=== PATIENT | female | born 1960 | race Two or more races ===

== ENCOUNTER 2017-03-12 14:29 | Inpatient (IN) | payer OTHER ==
[2017-03-12 15:08] VITALS: BMI 22.7
--- NOTE | 2017-03-12 15:29 | HP ---
CIWA Score - CIWA Score Nausea/Vomitin Muscle Tremors: 3 Anxiety: 3 Agitation: 3 Paroxysmal Sweats: 2 Orientation: 0-Oriented Tacttile Disturbances: 2-Mild Itch/Numbness/Burn Auditory Disturbances: 2-Mild Harshness/Frighten Visual Disturbances: 2-Mild Sensitivity Headache: 2-Mild CIWA-Ar Total Score: 22 Admission ROS BHS - HPI Chief Complaint: I AM HERE TO STOP DRINKING ALCOHOL Allergies/Adverse Reactions: Allergies Allergy/AdvReac Type Severity Reaction Status Date / Time almond oil Allergy Severe Itching Verified 03/12/17 15:20 red dye Allergy Severe Rash Verified 03/12/17 15:20 wheat Allergy Severe Verified 03/12/17 15:20 Iodinated Contrast Media - Allergy Verified 03/12/17 15:22 Oral and milk Allergy Verified 03/12/17 15:22 shrimp Allergy Verified 03/12/17 15:22 History of Present Illness: THIS 56 YEARS OLD FEMALE WITH ALCOHOL DEPENDENCE WITH WITHDRAWAL,NEVER BEEN IN DETOX BEFORE HYPERTENSION HYPERLIPEDEMIA SYNCOPE Exam Limitations: No Limitations - Ebola screening Have you traveled outside of the country in the last 21 days: No Have you had contact with anyone from an Ebola affected area: No Have you been sick,other than usual withdrawal symptoms: No - Review of Systems Constitutional: Loss of Appetite, Malaise, Night Sweats, Changes in sleep, Weakness, Unintentional Wgt. Loss EENT: reports: Tearing, Nose Congestion Respiratory: reports: No Symptoms reported Cardiac: reports: Palpitations GI: reports: Diarrhea, Nausea, Vomiting, Abdominal cramping : reports: No Symptoms Reported Musculoskeletal: reports: Back Pain, Muscle Pain Integumentary: reports: Dryness Neuro: reports: Headache, Tremors Endocrine: reports: No Symptoms Reported Hematology: reports: No Symptoms Reported Psychiatric: reports: No Sypmtoms Reported, Judgement Intact, Mood/Affect Appropiate, Orientated x3 Patient History - Patient Medical History Hx Anemia: No Hx Asthma: No Hx Chronic Obstructive Pulmonary Disease (COPD): No Hx Cancer: No Hx Cardiac Disorders: No Hx Congestive Heart Failure: No Hx Hypertension: Yes (ON MED) Hx Hypercholesterolemia: Yes (ON MED) Hx Pacemaker: No HX Cerebrovascular Accident: No Hx Seizures: No Hx Dementia: No Hx Diabetes: No Hx Gastrointestinal Disorders: No Hx Liver Disease: No Hx Genitourinary Disorders: No Hx Sexually Transmitted Disorders: No Hx Renal Disease (ESRD): No Hx Thyroid Disease: No Hx Human Immunodeficiency Virus (HIV): (NEVER BEEN TESTED BEFORE) Hx Hepatitis C: No Hx Depression: No Hx Suicide Attempt: No Hx Bipolar Disorder: No Hx Schizophrenia: No Other Medical History: NO SUICIDAL,NO HOMICIDAL - Patient Surgical History Hx Hysterectomy: Yes (FOR ENDOMETRIOSIS 2006) - PPD History Previous Implant?: Yes Documented Results: Negative w/o proof PPD to be Administered?: Yes - Reproductive History Patient : No - Smoking Cessation Smoking history: Never smoked - Substance & Tx. History Hx Alcohol Use: Yes Hx Substance Use: No Substance Use Type: Alcohol Hx Substance Use Treatment: No - Substances Abused Alcohol Route: Oral Frequency: Daily Amount used: 1/2 liter yuniel Age of first use: 30 Date of Last Use: 03/12/17 Family Disease History - Family Disease History Family Disease History: Other: Father (ALCOHOL,), Brother (ALCOHOL) Admission Physical Exam [facility] - Vital Signs Vital Signs: Vital Signs - 24 hr 03/12/17 15:04 Temperature 97.8 F Pulse Rate 113 H Respiratory 18 Rate Blood Pressure 140/87 - Physical General Appearance: Yes: Moderate Distress, Tremorous, Irritable, Sweating, Anxious HEENTM: Yes: Normal ENT Inspection, STEF, Pharynx Normal Respiratory: Yes: Within Normal Limits, Lungs Clear, Normal Breath Sounds Neck: Yes: Within Normal Limits, Supple, Trachea in good position Breast: Yes: Within Normal Limits Cardiology: Yes: Within Normal Limits, Regular Rhythm, Regular Rate, S1, S2 Abdominal: Yes: Within Normal Limits, Normal Bowel Sounds, Non Tender, Flat, Soft Genitourinary: Yes: Within Normal Limits Back: Yes: Normal Inspection, Muscle Spasm Musculoskeletal: Yes: Back pain, Muscle Pain Extremities: Yes: Normal Inspection, Normal Range of Motion, Tremors Neurological: Yes: energy engineer II-XII NML intact, Fully Oriented, Alert, Motor Strength 5/5 Integumentary: Yes: Dry Lymphatic: Yes: Within Normal Limits - Diagnostic (1) Alcohol dependence with uncomplicated withdrawal Current Visit: Yes Status: Acute (2) Syncope Current Visit: Yes Status: Acute (3) Hypertension Current Visit: Yes Status: Acute (4) S/P hysterectomy Current Visit: Yes Status: Acute Cleared for Admission [facility] - Detox or Rehab [facility] Level of Care: Medically Managed Detox Regimen/Protocol: Librium [facility] Breath Alcohol Content Breath Alcohol Content: 0.023 Urine Pregancy Test - Result Urine Test Results: Negative- NO Line Present Urine Drug Screen - Results Drug Screen Negative: Yes
[2017-03-12] MEDS ORDERED: MAG HYDROX/AL HYDROX/SIMETH 30 ML UNIT-DOSE CUP PO PRN (15:39)
[2017-03-12] MEDS ORDERED: guaiFENesin/D-METHORPHAN HB 10 ML UNIT-DOSE CUPS PO PRN (15:39)
[2017-03-12] MEDS ORDERED: P-EPHED 60MG/TRIPROLIDI 2.5MG TABLET PO PRN (15:39)
[2017-03-12] MEDS ORDERED: hydrOXYzine PAMOATE 50 MG CAPSULE (FP) PO PRN (15:39)
[2017-03-12] MEDS ORDERED: ACETAMINOPHEN 325 MG TABLET (FP) PO PRN (15:39)
[2017-03-12] MEDS ORDERED: MENTHOL/PHENOL 1 EACH UD MM PRN (15:39)
[2017-03-12] MEDS ORDERED: MAGNESIUM CITRATE 300 ML BOTTLE PO PRN (15:39)
[2017-03-12] MEDS ORDERED: LOPERAMIDE HCL 2 MG CAPSULE PO PRN (15:39)
[2017-03-12] MEDS ORDERED: IBUPROFEN 400 MG TABLET (FP) PO PRN (15:39)
[2017-03-12] MEDS ORDERED: chlordiazePOXIDE HCL 25 MG CAPSULE PO PRN (15:42)
[2017-03-12] MEDS ORDERED: chlordiazePOXIDE HCL 25 MG CAPSULE PO ONE (15:54)
[2017-03-12] MEDS: chlordiazePOXIDE HCL 25 MG CAPSULE PO SCH ×2 (17:28→22:13)
[2017-03-12] MEDS: THIAMINE HCL 100 MG TABLET (FP) PO SCH (22:13)
[2017-03-12] MEDS: diphenhydrAMINE HCL 50 MG CAPSULE PO PRN (22:13)
[2017-03-12] MEDS: ATORVASTATIN CA 20 MG TABLET (FP) PO SCH (22:13)
[2017-03-12 23:12] LABS: URINE APPEARANCE CLEAR; URINE BILIRUBIN NEGATIVE (NEGATIVE); URINE BLOOD NEGATIVE (NEGATIVE); URINE COLOR LTYELLOW; URINE GLUCOSE (UA) NEGATIVE (NEGATIVE); URINE KETONE NEGATIVE (NEGATIVE); URINE LEUK ESTERASE NEGATIVE (NEGATIVE); URINE NITRITE NEGATIVE (NEGATIVE); URINE UROBILINOGEN NEGATIVE E.U./dl (0.2-1.0)
[2017-03-12 23:15] LABS: URINE PROTEIN 2+ (NEGATIVE)
[2017-03-12 23:16] LABS: URINE MUCUS RARE; URINE RBC <1 /hpf (0-3); URINE WBC 3 /hpf (3-5)
[2017-03-13] MEDS: chlordiazePOXIDE HCL 25 MG CAPSULE PO SCH ×5 (06:13→22:41)
--- NOTE | 2017-03-13 09:04 | PN ---
S CIWA - CIWA Score Nausea/Vomitin Muscle Tremors: 3 Anxiety: 3 Agitation: 2 Paroxysmal Sweats: 3 Orientation: 0-Oriented Tacttile Disturbances: 2-Mild Itch/Numbness/Burn Auditory Disturbances: 0-None Visual Disturbances: 0-None Headache: 1-Very Mild CIWA-Ar Total Score: 17 S Progress Note (SOAP) Subjective: interrupted sleep, sweats, shakes , diarrhea, headache Objective: 03/13/17 09:01 Vital Signs Temperature 97.5 F L 03/13/17 06:58 Pulse Rate 73 03/13/17 06:58 Respiratory Rate 18 03/13/17 06:58 Blood Pressure 126/85 03/13/17 06:58 O2 Sat by Pulse Oximetry (%) Laboratory Tests 03/12/17 09:17 Urine Color Ltyellow Urine Appearance Clear Urine pH 7.0 Ur Specific [place] 1.012 Urine Protein 2+ H Urine Glucose (UA) Negative Urine Ketones Negative Urine Blood Negative Urine Nitrite Negative Urine Bilirubin Negative Urine Urobilinogen Negative Ur Leukocyte Esterase Negative Urine RBC <1 Urine WBC 3 Ur Epithelial Cells Rare Urine Mucus Rare pending labs pt aox3 in nad ambulating Assessment: 03/13/17 09:02 withdrawal sx;s allergies, sinus issues Plan: cont detox increase fluids f/up pending labs mucinex bid loratidine 10mg /d flonase bid
[2017-03-13 10:48] LABS: MCH 23.6 pg (25.7-33.7); MCHC 31.2 g/dl (32.0-36.0); MEAN CELL VOLUME 75.5 fl (80-96); MEAN PLT VOLUME 8.8 fl (7.5-11.1); PLATELET COUNT 256 K/MM3 (134-434); RDW 14.3 % (11.6-15.6)
[2017-03-13] MEDS: guaiFENesin 600 MG TABLET.ER (FP) PO SCH ×2 (10:49→22:40)
[2017-03-13] MEDS: FLUTICASONE PROP 0.05% 16 GM NASAL SPRAY NS SCH ×2 (10:49→22:41)
[2017-03-13] MEDS: PRENATAL VITAMINS W/ FOLIC ACID TABLET (FP) PO SCH (10:50)
[2017-03-13] MEDS: ASPIRIN 81 MG CHEWABLE TABLETS PO SCH (10:50)
[2017-03-13] MEDS: LORATADINE 10 MG TABLET PO SCH (10:50)
[2017-03-13] MEDS: amLODIPine BESYLATE 10 MG TABLET (FP) PO SCH (10:50)
[2017-03-13 11:07] LABS: ALBUMIN 3.9 g/dl (3.4-5.0); ALK PHOS 108 U/L (45-117); ANION GAP 8 (8-16); BILIRUBIN,TOTAL 0.6 mg/dL (0.2-1.0); CALCIUM 9.3 mg/dL (8.5-10.1); CO2 28 mmol/L (21-32); CREATININE 0.6 mg/dL (0.55-1.02); GLUCOSE,RANDOM 138 mg/dL (74-106); SGOT/AST 32 U/L (15-37); SGPT/ALT 35 U/L (12-78); TOT PROT 7.6 g/dl (6.4-8.2)
--- NOTE | 2017-03-13 12:33 | EKG ---
Test Reason : Blood Pressure : / mmHG Vent. Rate : 102 BPM Atrial Rate : 102 BPM P-R Int : 158 ms QRS Dur : 070 ms QT Int : 318 ms P-R-T Axes : 052 011 -14 degrees QTc Int : 414 ms SINUS TACHYCARDIA POSSIBLE LEFT ATRIAL ENLARGEMENT NONSPECIFIC T WAVE ABNORMALITY ABNORMAL ECG NO PREVIOUS ECGS AVAILABLE Confirmed by YSABEL SWARTZ, ABY ([id number]) on 03/13/2017 12:32:58 PM Referred By: Confirmed By:ABY GRADY MD
[2017-03-13] MEDS: ATORVASTATIN CA 20 MG TABLET (FP) PO SCH (22:40)
[2017-03-13] MEDS: THIAMINE HCL 100 MG TABLET (FP) PO SCH (22:42)
[2017-03-14] MEDS: chlordiazePOXIDE HCL 25 MG CAPSULE PO SCH ×2 (05:50→11:17)
[2017-03-14] MEDS: PRENATAL VITAMINS W/ FOLIC ACID TABLET (FP) PO SCH (11:15)
[2017-03-14] MEDS: ASPIRIN 81 MG CHEWABLE TABLETS PO SCH (11:16)
[2017-03-14] MEDS: guaiFENesin 600 MG TABLET.ER (FP) PO SCH ×2 (11:16→22:46)
[2017-03-14] MEDS: LORATADINE 10 MG TABLET PO SCH (11:16)
[2017-03-14] MEDS: amLODIPine BESYLATE 10 MG TABLET (FP) PO SCH (11:16)
[2017-03-14] MEDS: FLUTICASONE PROP 0.05% 16 GM NASAL SPRAY NS SCH ×2 (11:17→22:44)
[2017-03-14] MEDS: IBUPROFEN 600 MG TABLET (FP) PO PRN ×2 (12:31→22:50)
--- NOTE | 2017-03-14 13:42 | PN ---
[facility] CIWA - CIWA Score Nausea/Vomitin-No Nausea/No Vomiting Muscle Tremors: 4-Moderate,w/Arms Extend Anxiety: 3 Agitation: 1-Slight > Activity Paroxysmal Sweats: 3 Orientation: 0-Oriented Tacttile Disturbances: 0-None Auditory Disturbances: 0-None Visual Disturbances: 3-Moderate Sensitivity Headache: 3-Moderate CIWA-Ar Total Score: 17 BHS Progress Note (SOAP) Subjective: Tremors, Sweating, Diarrhea, Interrupted sleep, H/A, Lower Back Pain. Objective: PT. A & O X 3. 03/14/17 13:40 Vital Signs Temperature 97.7 F 03/14/17 12:00 Pulse Rate 99 H 03/14/17 12:00 Respiratory Rate 20 03/14/17 12:00 Blood Pressure 125/90 03/14/17 12:00 O2 Sat by Pulse Oximetry (%) Laboratory Last Values WBC 5.0 K/mm3 (4.0-10.0) 03/13/17 07:00 RBC 5.17 M/mm3 (3.60-5.2) 03/13/17 07:00 Hgb 12.2 GM/dL (10.7-15.3) 03/13/17 07:00 Hct 39.0 % (32.4-45.2) 03/13/17 07:00 MCV 75.5 fl (80-96) L 03/13/17 07:00 MCHC 31.2 g/dl (32.0-36.0) L 03/13/17 07:00 RDW 14.3 % (11.6-15.6) 03/13/17 07:00 Plt Count 256 K/MM3 (134-434) 03/13/17 07:00 MPV 8.8 fl (7.5-11.1) 03/13/17 07:00 Sodium 137 mmol/L (136-145) 03/13/17 07:00 Potassium 4.2 mmol/L (3.5-5.1) 03/13/17 07:00 Chloride 101 mmol/L (98-107) 03/13/17 07:00 Carbon Dioxide 28 mmol/L (21-32) 03/13/17 07:00 Anion Gap 8 (8-16) 03/13/17 07:00 BUN 12 mg/dL (7-18) 03/13/17 07:00 Creatinine 0.6 mg/dL (0.55-1.02) 03/13/17 07:00 Creat Clearance w eGFR > 60 (>60) 03/13/17 07:00 Random Glucose 138 mg/dL (74-106) H 03/13/17 07:00 Calcium 9.3 mg/dL (8.5-10.1) 03/13/17 07:00 Total Bilirubin 0.6 mg/dL (0.2-1.0) 03/13/17 07:00 AST 32 U/L (15-37) 03/13/17 07:00 ALT 35 U/L (12-78) 03/13/17 07:00 Alkaline Phosphatase 108 U/L (45-117) 03/13/17 07:00 Total Protein 7.6 g/dl (6.4-8.2) 03/13/17 07:00 Albumin 3.9 g/dl (3.4-5.0) 03/13/17 07:00 Urine Color Ltyellow 03/12/17 09:17 Urine Appearance Clear 03/12/17 09:17 Urine pH 7.0 (5.0-8.0) 03/12/17 09:17 Ur Specific [place] 1.012 (1.001-1.035) 03/12/17 09:17 Urine Protein 2+ (NEGATIVE) H 03/12/17 09:17 Urine Glucose (UA) Negative (NEGATIVE) 03/12/17 09:17 Urine Ketones Negative (NEGATIVE) 03/12/17 09:17 Urine Blood Negative (NEGATIVE) 03/12/17 09:17 Urine Nitrite Negative (NEGATIVE) 03/12/17 09:17 Urine Bilirubin Negative (NEGATIVE) 03/12/17 09:17 Urine Urobilinogen Negative E.U./dl (0.2-1.0) 03/12/17 09:17 Ur Leukocyte Esterase Negative (NEGATIVE) 03/12/17 09:17 Urine RBC <1 /hpf (0-3) 03/12/17 09:17 Urine WBC 3 /hpf (3-5) 03/12/17 09:17 Ur Epithelial Cells Rare /hpf (FEW) 03/12/17 09:17 Urine Mucus Rare 03/12/17 09:17 RPR Titer Nonreactive (NONREACTIVE) 03/13/17 07:00 LABS NOTED. Assessment: 03/14/17 13:41 WITHDRAWAL SYMPTOMS. Plan: CONTINUE DETOX. PRN IMMODIUM FOR DIARRHEA. ADVISED PATIENT TO FOLLOW-UP WITH [facility] / REHAB MEDICAL PROVIDER AFTER DISCHARGE FROM DETOX FOR GENERAL MEDICAL ASSESSMENT AND FOR ABNORMAL ADMISSION LAB VALUES.
[2017-03-14] MEDS: chlordiazePOXIDE 5 MG CAPSULE PO SCH ×2 (17:13→22:45)
[2017-03-14] MEDS: ATORVASTATIN CA 20 MG TABLET (FP) PO SCH (22:45)
[2017-03-14] MEDS: THIAMINE HCL 100 MG TABLET (FP) PO SCH (22:45)
[2017-03-14] MEDS: MAGNESIUM HYDROX 2400MG/30ML ORAL SUSPENSION 30 ML CUP PO PRN (22:48)
[2017-03-15] MEDS: diphenhydrAMINE HCL 50 MG CAPSULE PO PRN ×2 (01:16→22:47)
[2017-03-15] MEDS: chlordiazePOXIDE 5 MG CAPSULE PO SCH ×2 (06:17→10:43)
[2017-03-15] MEDS: PRENATAL VITAMINS W/ FOLIC ACID TABLET (FP) PO SCH (10:44)
[2017-03-15] MEDS: FLUTICASONE PROP 0.05% 16 GM NASAL SPRAY NS SCH ×2 (10:44→22:43)
[2017-03-15] MEDS: amLODIPine BESYLATE 10 MG TABLET (FP) PO SCH (10:44)
[2017-03-15] MEDS: LORATADINE 10 MG TABLET PO SCH (10:44)
[2017-03-15] MEDS: ASPIRIN 81 MG CHEWABLE TABLETS PO SCH (10:44)
[2017-03-15] MEDS: guaiFENesin 600 MG TABLET.ER (FP) PO SCH ×2 (10:44→22:43)
[2017-03-15] MEDS: MAGNESIUM HYDROX 2400MG/30ML ORAL SUSPENSION 30 ML CUP PO PRN (10:47)
[2017-03-15] MEDS: chlordiazePOXIDE HCL 10 MG CAPSULE PO SCH ×2 (17:44→22:43)
--- NOTE | 2017-03-15 18:25 | PN ---
S Progress Note (SOAP) Subjective: Nausea, Tremors, Lower Back Ache, Interrupted sleep, Sweating. Objective: PT. A & O X 3, OBSERVED AMBULATING ON UNIT. 03/15/17 18:23 Vital Signs Temperature 98.1 F 03/15/17 14:37 Pulse Rate 93 H 03/15/17 14:37 Respiratory Rate 18 03/15/17 14:37 Blood Pressure 117/85 03/15/17 14:37 O2 Sat by Pulse Oximetry (%) Laboratory Last Values WBC 5.0 K/mm3 (4.0-10.0) 03/13/17 07:00 RBC 5.17 M/mm3 (3.60-5.2) 03/13/17 07:00 Hgb 12.2 GM/dL (10.7-15.3) 03/13/17 07:00 Hct 39.0 % (32.4-45.2) 03/13/17 07:00 MCV 75.5 fl (80-96) L 03/13/17 07:00 MCHC 31.2 g/dl (32.0-36.0) L 03/13/17 07:00 RDW 14.3 % (11.6-15.6) 03/13/17 07:00 Plt Count 256 K/MM3 (134-434) 03/13/17 07:00 MPV 8.8 fl (7.5-11.1) 03/13/17 07:00 Sodium 137 mmol/L (136-145) 03/13/17 07:00 Potassium 4.2 mmol/L (3.5-5.1) 03/13/17 07:00 Chloride 101 mmol/L (98-107) 03/13/17 07:00 Carbon Dioxide 28 mmol/L (21-32) 03/13/17 07:00 Anion Gap 8 (8-16) 03/13/17 07:00 BUN 12 mg/dL (7-18) 03/13/17 07:00 Creatinine 0.6 mg/dL (0.55-1.02) 03/13/17 07:00 Creat Clearance w eGFR > 60 (>60) 03/13/17 07:00 Random Glucose 138 mg/dL (74-106) H 03/13/17 07:00 Calcium 9.3 mg/dL (8.5-10.1) 03/13/17 07:00 Total Bilirubin 0.6 mg/dL (0.2-1.0) 03/13/17 07:00 AST 32 U/L (15-37) 03/13/17 07:00 ALT 35 U/L (12-78) 03/13/17 07:00 Alkaline Phosphatase 108 U/L (45-117) 03/13/17 07:00 Total Protein 7.6 g/dl (6.4-8.2) 03/13/17 07:00 Albumin 3.9 g/dl (3.4-5.0) 03/13/17 07:00 Urine Color Ltyellow 03/12/17 09:17 Urine Appearance Clear 03/12/17 09:17 Urine pH 7.0 (5.0-8.0) 03/12/17 09:17 Ur Specific [place] 1.012 (1.001-1.035) 03/12/17 09:17 Urine Protein 2+ (NEGATIVE) H 03/12/17 09:17 Urine Glucose (UA) Negative (NEGATIVE) 03/12/17 09:17 Urine Ketones Negative (NEGATIVE) 03/12/17 09:17 Urine Blood Negative (NEGATIVE) 03/12/17 09:17 Urine Nitrite Negative (NEGATIVE) 03/12/17 09:17 Urine Bilirubin Negative (NEGATIVE) 03/12/17 09:17 Urine Urobilinogen Negative E.U./dl (0.2-1.0) 03/12/17 09:17 Ur Leukocyte Esterase Negative (NEGATIVE) 03/12/17 09:17 Urine RBC <1 /hpf (0-3) 03/12/17 09:17 Urine WBC 3 /hpf (3-5) 03/12/17 09:17 Ur Epithelial Cells Rare /hpf (FEW) 03/12/17 09:17 Urine Mucus Rare 03/12/17 09:17 RPR Titer Nonreactive (NONREACTIVE) 03/13/17 07:00 LABS NOTED. Assessment: 03/15/17 18:24 WITHDRAWAL SYMPTOMS. Plan: CONTINUE DETOX. ADVISED PATIENT TO FOLLOW-UP WITH [facility] / REHAB MEDICAL PROVIDER AFTER DISCHARGE FROM DETOX FOR GENERAL MEDICAL ASSESSMENT AND FOR ABNORMAL ADMISSION LAB VALUES.
[2017-03-15] MEDS: THIAMINE HCL 100 MG TABLET (FP) PO SCH (22:43)
[2017-03-15] MEDS: ATORVASTATIN CA 20 MG TABLET (FP) PO SCH (22:43)
[2017-03-15] MEDS: IBUPROFEN 600 MG TABLET (FP) PO PRN (22:44)
[2017-03-16] MEDS: chlordiazePOXIDE HCL 10 MG CAPSULE PO SCH ×2 (06:09→10:23)
--- NOTE | 2017-03-16 09:58 | DS ---
[facility] Detox Discharge Summary Admission Date: 03/12/17 Discharge Date: 03/16/17 - History Present History: Alcohol Dependence Pertinent Past History: HTN S/P Hysterectomy - Physical Exam Results Vital Signs: Vital Signs Temperature 96.6 F L 03/16/17 06:00 Pulse Rate 101 H 03/16/17 06:00 Respiratory Rate 18 03/16/17 06:00 Blood Pressure 111/85 03/16/17 06:00 O2 Sat by Pulse Oximetry (%) Pertinent Admission Physical Exam Findings: Withdrawal sx. Laboratory Last Values WBC 5.0 K/mm3 (4.0-10.0) 03/13/17 07:00 RBC 5.17 M/mm3 (3.60-5.2) 03/13/17 07:00 Hgb 12.2 GM/dL (10.7-15.3) 03/13/17 07:00 Hct 39.0 % (32.4-45.2) 03/13/17 07:00 MCV 75.5 fl (80-96) L 03/13/17 07:00 MCHC 31.2 g/dl (32.0-36.0) L 03/13/17 07:00 RDW 14.3 % (11.6-15.6) 03/13/17 07:00 Plt Count 256 K/MM3 (134-434) 03/13/17 07:00 MPV 8.8 fl (7.5-11.1) 03/13/17 07:00 Sodium 137 mmol/L (136-145) 03/13/17 07:00 Potassium 4.2 mmol/L (3.5-5.1) 03/13/17 07:00 Chloride 101 mmol/L (98-107) 03/13/17 07:00 Carbon Dioxide 28 mmol/L (21-32) 03/13/17 07:00 Anion Gap 8 (8-16) 03/13/17 07:00 BUN 12 mg/dL (7-18) 03/13/17 07:00 Creatinine 0.6 mg/dL (0.55-1.02) 03/13/17 07:00 Creat Clearance w eGFR > 60 (>60) 03/13/17 07:00 Random Glucose 138 mg/dL (74-106) H 03/13/17 07:00 Calcium 9.3 mg/dL (8.5-10.1) 03/13/17 07:00 Total Bilirubin 0.6 mg/dL (0.2-1.0) 03/13/17 07:00 AST 32 U/L (15-37) 03/13/17 07:00 ALT 35 U/L (12-78) 03/13/17 07:00 Alkaline Phosphatase 108 U/L (45-117) 03/13/17 07:00 Total Protein 7.6 g/dl (6.4-8.2) 03/13/17 07:00 Albumin 3.9 g/dl (3.4-5.0) 03/13/17 07:00 Urine Color Ltyellow 03/12/17 09:17 Urine Appearance Clear 03/12/17 09:17 Urine pH 7.0 (5.0-8.0) 03/12/17 09:17 Ur Specific [place] 1.012 (1.001-1.035) 03/12/17 09:17 Urine Protein 2+ (NEGATIVE) H 03/12/17 09:17 Urine Glucose (UA) Negative (NEGATIVE) 03/12/17 09:17 Urine Ketones Negative (NEGATIVE) 03/12/17 09:17 Urine Blood Negative (NEGATIVE) 03/12/17 09:17 Urine Nitrite Negative (NEGATIVE) 03/12/17 09:17 Urine Bilirubin Negative (NEGATIVE) 03/12/17 09:17 Urine Urobilinogen Negative E.U./dl (0.2-1.0) 03/12/17 09:17 Ur Leukocyte Esterase Negative (NEGATIVE) 03/12/17 09:17 Urine RBC <1 /hpf (0-3) 03/12/17 09:17 Urine WBC 3 /hpf (3-5) 03/12/17 09:17 Ur Epithelial Cells Rare /hpf (FEW) 03/12/17 09:17 Urine Mucus Rare 03/12/17 09:17 RPR Titer Nonreactive (NONREACTIVE) 03/13/17 07:00 labs noted - Treatment Hospital Course: Detox Protocol Followed, Detoxed Safely, Responded well, Discharged Condition Good, Rehab Referral Accepted - Medication Discharge Medications: Ambulatory Orders Amlodipine Besylate [Norvasc -] 10 mg PO DAILY 03/12/17 Aspirin [ASA -] 81 mg PO DAILY 03/12/17 Atorvastatin Ca [Lipitor] 20 mg PO HS 03/12/17 Diphenhydram/PE/Dm/Acetamin/GG [Mucinex Fast-Max Day-Nite Rickie] 1 each PO BID Fluticasone Propionate 15.8 ml NS DAILY 03/12/17 Folic Acid - 1 mg PO DAILY 03/12/17 Ibuprofen [Motrin -] 600 mg PO Q6H PRN 03/12/17 Loratadine [Claritin -] 10 mg PO DAILY 03/12/17 Thiamine Mononitrate [Vitamin B-1] 100 mg PO DAILY 03/12/17 - Diagnosis (1) Alcohol dependence with uncomplicated withdrawal Current Visit: Yes Status: Acute (2) Hypertension Current Visit: Yes Status: Acute Qualifiers: Hypertension type: essential hypertension Qualified Code(s): I10 - Essential (primary) hypertension (3) Hypercholesterolemia Current Visit: Yes Status: Acute - AMA Did Patient Leave Against Medical Advice: No
[2017-03-16] MEDS: PRENATAL VITAMINS W/ FOLIC ACID TABLET (FP) PO SCH (10:21)
[2017-03-16] MEDS: ASPIRIN 81 MG CHEWABLE TABLETS PO SCH (10:21)
[2017-03-16] MEDS: FLUTICASONE PROP 0.05% 16 GM NASAL SPRAY NS SCH (10:21)
[2017-03-16] MEDS: guaiFENesin 600 MG TABLET.ER (FP) PO SCH (10:22)
[2017-03-16] MEDS: amLODIPine BESYLATE 10 MG TABLET (FP) PO SCH (10:22)
[2017-03-16] MEDS: LORATADINE 10 MG TABLET PO SCH (10:22)
[2017-03-16 10:53] VITALS: BP 126/86; PULSE 88; TEMP 97.9
== END 2017-03-16 10:26 | disposition home or self-care (01) | DRG 775 ==
LOC: YASAS 14:29 → Y6N 15:41
PROVIDERS: ADMIT Internal Medicine Addiction Medicine; ATTEND Internal Medicine Addiction Medicine
PROC: HZ2ZZZZ Detoxification Services for Substance Abuse Treatment (ICD-10-PCS; principal; 2017-03-12)
DX: F10.230 Alcohol dependence with withdrawal, uncomplicated (principal); I10 Essential (primary) hypertension; E78.5 Hyperlipidemia, unspecified; J30.9 Allergic rhinitis, unspecified; Z90.710 Acquired absence of both cervix and uterus; Z86.79 Personal history of other diseases of the circulatory system
CPT/HCPCS: 36415; 80053; 81003; 81015; 85027; 86593; 93005; 93010